=== PATIENT | female | born 1945 ===

== ENCOUNTER 2020-05-24 06:00 | Outpatient (RCR) | payer MEDICARE, OTHER, SELFPAY | END 2020-06-03 23:59 | disposition home or self-care (01) | LOC: GPT 06:00 | PROVIDERS: Referring Provider Physician Assistant; Visit Provider Physician Assistant | DX: Z47.1 Aftercare following joint replacement surgery (principal); Z96.611 Presence of right artificial shoulder joint | CPT/HCPCS: 97110; 97140; 97161; 97530; G0283 ==

== ENCOUNTER 2020-06-04 06:00 | Outpatient (RCR) | payer MEDICARE, OTHER, SELFPAY | END 2020-07-03 23:59 | disposition home or self-care (01) | LOC: GPT 06:00 | PROVIDERS: Referring Provider Physician Assistant; Visit Provider Physician Assistant | DX: Z47.1 Aftercare following joint replacement surgery (principal); Z96.611 Presence of right artificial shoulder joint | CPT/HCPCS: 97032; 97110; 97140 ==

== ENCOUNTER 2020-08-04 06:00 | Outpatient (RCR) | payer MEDICARE, OTHER, SELFPAY | END 2020-09-03 23:59 | disposition home or self-care (01) | LOC: GPT 06:00 | PROVIDERS: Referring Provider Physician Assistant; Visit Provider Physician Assistant | DX: Z47.1 Aftercare following joint replacement surgery (principal); Z96.611 Presence of right artificial shoulder joint | CPT/HCPCS: 97032; 97110; 97164; 97530 ==

== ENCOUNTER 2020-09-04 06:00 | Outpatient (RCR) | payer MEDICARE, OTHER, SELFPAY | END 2020-10-01 23:59 | disposition home or self-care (01) | LOC: GPT 06:00 | PROVIDERS: Referring Provider Physician Assistant; Visit Provider Physician Assistant | DX: Z96.611 Presence of right artificial shoulder joint (principal) | CPT/HCPCS: 97032; 97110; 97530 ==

== ENCOUNTER → 2024-01-22 13:03 | Outpatient (BNVA) | payer MEDICARE, BC, SELFPAY | PROVIDERS: Visit Provider Obstetrics & Gynecology | DX: Z08 Encounter for follow-up examination after completed treatment for malignant neoplasm (principal); Z85.42 Personal history of malignant neoplasm of other parts of uterus; Z98.890 Other specified postprocedural states | CPT/HCPCS: 76857 ==